=== PATIENT | female | born 1965 | race Caucasian/White ===

== ENCOUNTER 2017-08-24 11:06 | Emergency (ER) | payer BC, OTHER ==
[~2017-08-24] VITALS: Ht 160 cm; Wt 81.0 kg
[~2017-08-24 11:06] MED LIST: CEPH500C5 PO; PHEN-873 PO
[2017-08-24 11:59] LABS: CLARITY,URINE CLEAR (Clear); COLOR,URINE YELLOW (Yellow); GLUCOSE, URINE NEGATIVE (Neg); KETONES,URINE NEGATIVE (Neg); LEUKOCYTE ESTERASE ,URINE NEGATIVE (Neg); NITRITES, URINE NEGATIVE (Neg); OCCULT BLOOD,URINE NEGATIVE (Neg); PROTEIN,URINE NEGATIVE (Neg); UROBILINOGEN,URINE 0.2 E.U/dL (0.2-1.0)
[2017-08-24 12:03] VITALS: BP 150/82
[2017-08-24 12:05] LABS: UA COLLECTION TYPE CLN CATCH MIDSTREAM
[2017-08-24] MEDS ORDERED: BENZ-16 PO (12:39)
[2017-08-24] MEDS ORDERED: TAM75C PO (12:39)
[2017-08-24] MEDS ORDERED: ALBU8HFA PO (12:39)
== END 2017-08-24 12:45 | disposition home or self-care (01) ==
LOC: ER 11:07
DX: J11.1 Influenza due to unidentified influenza virus with other respiratory manifestations (principal)
CPT/HCPCS: 36415; 71046; 81003; 82948; 87502; 87503; 93005; 99285

== ENCOUNTER 2017-10-30 13:47 | Outpatient (CLI) | payer OTHER | END 2017-10-30 23:59 | disposition home or self-care (01) | LOC: VAS 13:47 | PROVIDERS: ATTEND Internal Medicine Interventional Cardiology | DX: I65.23 Occlusion and stenosis of bilateral carotid arteries (principal); R55 Syncope and collapse; Z87.891 Personal history of nicotine dependence | CPT/HCPCS: 93880 ==

== ENCOUNTER 2018-03-30 07:54 | Emergency (ER) | payer OTHER ==
[~2018-03-30] VITALS: Ht 162.6 cm; Wt 84.1 kg
[~2018-03-30 07:54] MED LIST changes: +PHEN-786 PO; -PHEN-873 PO
[2018-03-30 09:07] VITALS: BP 142/96
== END 2018-03-30 09:08 | disposition home or self-care (01) ==
LOC: ER 07:55
DX: R10.84 Generalized abdominal pain (principal); Z90.49 Acquired absence of other specified parts of digestive tract; Z88.0 Allergy status to penicillin; Z88.5 Allergy status to narcotic agent
CPT/HCPCS: 74176; 99284

== ENCOUNTER 2018-10-25 09:17 | Emergency (ER) | payer OTHER ==
[~2018-10-25] VITALS: Ht 160 cm; Wt 90.0 kg
[~2018-10-25 09:17] MED LIST changes: -CEPH500C5 PO
[2018-10-25 09:21] VITALS: BP 157/95
[2018-10-25] MEDS ORDERED: albuterol 2.5 MG/3 ML nebule NEB ONE (09:30)
[2018-10-25] MEDS ORDERED: ALBU8HFA PO (09:57)
[2018-10-25] MEDS ORDERED: AZIT250T PO (09:57)
[2018-10-25] MEDS ORDERED: BENZ-16 PO (09:57)
== END 2018-10-25 10:05 | disposition home or self-care (01) ==
LOC: ER 09:18
DX: J20.9 Acute bronchitis, unspecified (principal); Z88.0 Allergy status to penicillin; Z88.5 Allergy status to narcotic agent; Z87.440 Personal history of urinary (tract) infections
CPT/HCPCS: 71045; 94640; 94760; 99283

== ENCOUNTER 2019-01-07 09:52 | Emergency (ER) | payer OTHER ==
[~2019-01-07] VITALS: Ht 162.6 cm; Wt 79.0 kg
[~2019-01-07 09:52] MED LIST changes: +AZIT250T PO
[2019-01-07] MEDS ORDERED: diphenhydrAMINE 25mg capsule PO ONE (10:30)
[2019-01-07] MEDS ORDERED: ondansetron 4mg rapidly disintigrating tab PO ONE (10:30)
[2019-01-07] MEDS ORDERED: meclizine 12.5mg tablet PO ONE (10:30)
[2019-01-07 11:00] LABS: BASOPHILS % (AUTO) 0.4 % (0-1); EOSINOPHILS # (AUTO) 0.1 X10'3 (0-0.9); EOSINOPHILS % (AUTO) 1.8 % (0-6); HEMATOCRIT 39.7 % (35.0-45.0); HEMOGLOBIN 13.4 g/dl (12.0-16.0); LYMPHOCYTES # (AUTO) 1.9 X10'3 (1.1-4.8); MEAN CORPUSCULAR HEMOGLOBIN 31.7 PG (27.0-31.0); MEAN CORPUSCULAR HGB CONC 33.8 g/dL (33.0-36.5); MEAN CORPUSCULAR VOLUME 93.7 FL (78-98); MEAN PLATELET VOLUME 7.8 FL (7.4-10.4); MONOCYTES # (AUTO) 0.6 X10'3 (0-0.9); MONOCYTES % (AUTO) 8.6 % (2-12); NEUTROPHILS # (AUTO) 4.5 X10'3 (1.8-7.7); NEUTROPHILS % (AUTO) 62.2 % (42-75); PLATELET COUNT 279 X10'3 (140-440); RED BLOOD COUNT 4.24 X10'6 (4.20-5.60); RED CELL DISTRIBUTION WIDTH 13.6 % (11.5-14.5); WHITE BLOOD COUNT 7.2 X10'3 (4.5-11.0)
[2019-01-07 11:16] LABS: ALANINE AMINOTRANSFERASE 33 U/L (12-78); ALBUMIN 3.4 G/DL (3.4-5.0); ALBUMIN/GLOBULIN RATIO 0.9 (1.1-1.5); ALKALINE PHOSPHATASE 71 IU/L (46-116); ANION GAP 4 (8-16); ASPARTATE AMINO TRANSFERASE 21 U/L (10-37); BILIRUBIN,TOTAL 0.3 MG/DL (0.1-1.0); BLOOD UREA NITROGEN 13 MG/DL (7-18); BUN/CREATININE RATIO 18.6 (6.6-38.0); CALCIUM 8.9 MG/DL (8.5-10.1); CHLORIDE 108 MMOL/L (99-107); GLUCOSE 90 MG/DL (70-104); POTASSIUM 4.2 MMOL/L (3.5-5.1); SODIUM 141 MMOL/L (135-145); TOTAL CARBON DIOXIDE 29.3 MMOL/L (24-32); TOTAL PROTEIN 7.1 G/DL (6.4-8.2); eGFR 88 ML/MIN
[2019-01-07] MEDS ORDERED: proCHLORperazine 10mg tablet PO ONE (12:00)
[2019-01-07] MEDS ORDERED: diazepam 5mg tablet PO ONE (12:00)
[2019-01-07 12:38] VITALS: BP 150/91
[2019-01-07] MEDS ORDERED: VAL5T PO (13:07)
[2019-01-07] MEDS ORDERED: DIPH25CA83 PO (13:07)
[2019-01-07] MEDS ORDERED: PROC-8 PO (13:07)
[2019-01-07] MEDS ORDERED: SCOP1PAT11 TD (13:07)
== END 2019-01-07 13:43 | disposition home or self-care (01) ==
LOC: ER 09:53
DX: H81.13 Benign paroxysmal vertigo, bilateral (principal); Z98.890 Other specified postprocedural states; Z88.0 Allergy status to penicillin; Z88.8 Allergy status to other drugs, medicaments and biological substances; Z88.5 Allergy status to narcotic agent; Z79.899 Other long term (current) drug therapy
CPT/HCPCS: 36415; 70450; 80053; 85025; 99284; J2405; J8597; Q0163; Q0164

== ENCOUNTER 2019-11-26 08:16 | Emergency (ER) | payer BC, OTHER ==
[~2019-11-26] VITALS: Ht 160 cm; Wt 80.0 kg
[~2019-11-26 08:16] MED LIST changes: +DIPH25CA83 PO; +PROC-8 PO; +SCOP1PAT11 TD
[2019-11-26 08:33] VITALS: BP 138/85
== END 2019-11-26 09:44 | disposition home or self-care (01) ==
LOC: ER 08:16
DX: J06.9 Acute upper respiratory infection, unspecified (principal); B97.89 Other viral agents as the cause of diseases classified elsewhere; Z20.828 Contact with and (suspected) exposure to other viral communicable diseases; Z88.0 Allergy status to penicillin; Z88.5 Allergy status to narcotic agent; Z79.899 Other long term (current) drug therapy
CPT/HCPCS: 36415; 87081; 87880; 99283

== ENCOUNTER 2019-12-23 08:43 | Emergency (ER) | payer BC ==
[~2019-12-23] VITALS: Ht 160 cm; Wt 79.5 kg
[2019-12-23 08:49] VITALS: BP 152/100
[2019-12-23] MEDS ORDERED: dexamethasone sod phosphate 10mg/ml inj IM STA (08:54)
[2019-12-23] MEDS ORDERED: CefTRIAXone 250MG IM Kit w/LIDOcaine IM ONE (08:55)
[2019-12-23] MEDS ORDERED: XYL25J TOP (09:09)
[2019-12-23] MEDS ORDERED: CEPH250T PO (09:09)
[2019-12-23] MEDS ORDERED: HYDR-4383 PO (09:09)
== END 2019-12-23 09:31 | disposition home or self-care (01) ==
LOC: ER 08:43
DX: J02.9 Acute pharyngitis, unspecified (principal); Z20.828 Contact with and (suspected) exposure to other viral communicable diseases; Z98.890 Other specified postprocedural states; Z88.0 Allergy status to penicillin; Z88.5 Allergy status to narcotic agent; Z88.8 Allergy status to other drugs, medicaments and biological substances; Z79.899 Other long term (current) drug therapy
CPT/HCPCS: 87081; 87880; 96372; 99284; J0696; J1100; 36415

== ENCOUNTER 2020-02-18 20:45 | Emergency (ER) | payer BC ==
[~2020-02-18] VITALS: Ht 160 cm; Wt 73.0 kg
[~2020-02-18 20:45] MED LIST changes: +HYDR-4383 PO; +XYL25J TOP
[2020-02-18 20:46] VITALS: BP 120/89
[2020-02-18] MEDS ORDERED: triamcinolone acetonide 40mg/ml inj IM ONE (21:05)
[2020-02-18] MEDS ORDERED: PRED10TA PO (21:15)
== END 2020-02-18 21:24 | disposition home or self-care (01) ==
LOC: ER 20:46
DX: L23.7 Allergic contact dermatitis due to plants, except food (principal); Z87.440 Personal history of urinary (tract) infections; Z98.890 Other specified postprocedural states; Z88.0 Allergy status to penicillin; Z88.5 Allergy status to narcotic agent; Z88.8 Allergy status to other drugs, medicaments and biological substances; Z79.2 Long term (current) use of antibiotics; Z79.899 Other long term (current) drug therapy
CPT/HCPCS: 96372; 99283; J3301

== ENCOUNTER 2020-12-01 13:14 | Emergency (ER) | payer BC, OTHER ==
[~2020-12-01] VITALS: Ht 160 cm; Wt 77.3 kg
[~2020-12-01 13:14] MED LIST changes: +PRED10TA PO
[2020-12-01] MEDS ORDERED: ondansetron/PF 4mg/2ml inj IV ONE (14:10)
[2020-12-01] MEDS ORDERED: ketorolac trometh. 30mg/ml inj. IV ONE (14:10)
[2020-12-01] MEDS ORDERED: oxyCODONE/APAP 10/325mg tablet PO ONE (14:10)
[2020-12-01] MEDS ORDERED: normal saline 1000ML IV soln IVB ONE (14:10)
[2020-12-01] MEDS ORDERED: diazepam inj 5 MG/ML inj. IV ONE ×2 (14:10→16:45)
--- NOTE | 2020-12-01 15:51 | NUR ---
PT TAKEN TO MRI.
[2020-12-01] MEDS ORDERED: HYDROmorphone 1 mg/ml syringe IV ONE (16:45)
[2020-12-01] MEDS ORDERED: DIAZ5TAB22 PO (17:26)
[2020-12-01] MEDS ORDERED: OXYC-145 PO (17:26)
[2020-12-01] MEDS ORDERED: KETO10TA2 PO (17:26)
[2020-12-01 18:24] VITALS: BP 140/77
[2020-12-02] MEDS ORDERED: DICL75TA5 PO (16:10)
[2020-12-02] MEDS ORDERED: AMPH20CA3 PO (16:10)
[2020-12-02] MEDS ORDERED: PROG100C11 PO (16:10)
[2020-12-02] MEDS ORDERED: ESTR1PAT93 TP (16:10)
== END 2020-12-01 18:20 | disposition home or self-care (01) ==
LOC: ER 13:15 → EEVIPCON 13:15 → ER 18:20
DX: S32.010A Wedge compression fracture of first lumbar vertebra, initial encounter for closed fracture (principal); Z88.0 Allergy status to penicillin; Z88.6 Allergy status to analgesic agent; Z88.8 Allergy status to other drugs, medicaments and biological substances; Z79.2 Long term (current) use of antibiotics; Z79.899 Other long term (current) drug therapy; Z98.890 Other specified postprocedural states; W19.XXXA Unspecified fall, initial encounter; Y93.89 Activity, other specified; Y92.89 Other specified places as the place of occurrence of the external cause; Y99.8 Other external cause status
CPT/HCPCS: 72148; 96361; 96374; 96375; 96376; 99284; J1170; J1885; J2405; J3360; J7030

== ENCOUNTER 2020-12-02 15:38 | Inpatient (IN) | payer BC ==
[~2020-12-02] VITALS: Ht 160 cm; Wt 77.0 kg
[~2020-12-02 15:38] MED LIST changes: +DIAZ5TAB22 PO; +KETO10TA2 PO; +OXYC-145 PO
[2020-12-02] MEDS ORDERED: normal saline 1000ML IV soln IVB ONE (15:45)
[2020-12-02] MEDS ORDERED: diazepam inj 5 MG/ML inj. IV ONE (15:45)
[2020-12-02] MEDS ORDERED: HYDROmorphone 1 mg/ml syringe IV ONE (15:45)
[2020-12-02] MEDS ORDERED: ondansetron/PF 4mg/2ml inj IV ONE (15:45)
[2020-12-02] MEDS ORDERED: DICL75TA5 PO (16:10)
[2020-12-02] MEDS ORDERED: AMPH20CA3 PO (16:10)
[2020-12-02] MEDS ORDERED: ESTR1PAT93 TP (16:10)
[2020-12-02] MEDS ORDERED: PROG100C11 PO (16:10)
[2020-12-02 16:55] LABS: BASOPHILS % (AUTO) 0.4 % (0-1); EOSINOPHILS # (AUTO) 0.1 X10'3 (0-0.9); EOSINOPHILS % (AUTO) 0.9 % (0-6); HEMATOCRIT 37.5 % (35.0-45.0); HEMOGLOBIN 12.9 g/dl (12.0-16.0); LYMPHOCYTES # (AUTO) 2.8 X10'3 (1.1-4.8); LYMPHOCYTES % (AUTO) 31.4 % (21-51); MEAN CORPUSCULAR HEMOGLOBIN 31.1 PG (27.0-31.0); MEAN CORPUSCULAR HGB CONC 34.3 g/dL (33.0-36.5); MEAN CORPUSCULAR VOLUME 90.9 FL (78-98); MEAN PLATELET VOLUME 7.5 FL (7.4-10.4); MONOCYTES # (AUTO) 0.8 X10'3 (0-0.9); MONOCYTES % (AUTO) 9.4 % (2-12); NEUTROPHILS # (AUTO) 5.1 X10'3 (1.8-7.7); NEUTROPHILS % (AUTO) 57.9 % (42-75); PLATELET COUNT 265 X10'3 (140-440); RED BLOOD COUNT 4.13 X10'6 (4.20-5.60); RED CELL DISTRIBUTION WIDTH 14.3 % (11.5-14.5); WHITE BLOOD COUNT 8.8 X10'3 (4.5-11.0)
[2020-12-02 17:18] LABS: ALANINE AMINOTRANSFERASE 21 U/L (12-78); ALBUMIN 3.3 G/DL (3.4-5.0); ALBUMIN/GLOBULIN RATIO 0.9 (1.1-1.5); ALKALINE PHOSPHATASE 85 IU/L (46-116); ANION GAP 9 (8-16); ASPARTATE AMINO TRANSFERASE 19 U/L (10-37); BILIRUBIN,TOTAL 0.5 MG/DL (0.1-1.0); BLOOD UREA NITROGEN 15 MG/DL (7-18); BUN/CREATININE RATIO 21.1 (6.6-38.0); CALCIUM 8.4 MG/DL (8.5-10.1); CHLORIDE 104 MMOL/L (99-107); CREATININE 0.71 MG/DL (0.40-0.90); GLUCOSE 98 MG/DL (70-104); POTASSIUM 3.5 MMOL/L (3.5-5.1); SODIUM 138 MMOL/L (135-145); TOTAL CARBON DIOXIDE 25.4 MMOL/L (24-32); TOTAL PROTEIN 6.8 G/DL (6.4-8.2); eGFR 86 ML/MIN
[2020-12-02] MEDS ORDERED: magnesium 2GM in 50ml NS 50 ML IV PRN (17:25)
[2020-12-02] MEDS ORDERED: magnesium hydroxide 30ml (MOM) UD suspension PO PRN (17:25)
[2020-12-02] MEDS ORDERED: mag hydrox/Alum hydrox/simeth 30ml oral suspension PO PRN (17:25)
[2020-12-02] MEDS ORDERED: potassium Cl 20 mEq SR tablet PO PRN ×2 (17:25)
[2020-12-02] MEDS ORDERED: acetaminophen 650mg rectal suppository RC PRN (17:25)
[2020-12-02] MEDS: normal saline 1000ml 1,000 ML IV SCH ×2 (17:25→23:03)
[2020-12-02] MEDS ORDERED: magnesium 4gm in 100ml NS 100 ML IV PRN (17:25)
[2020-12-02] MEDS ORDERED: potassium Cl 40MEQ/1/2NS 520ml 520 ML IV PRN ×2 (17:25)
[2020-12-02] MEDS ORDERED: diphenhydrAMINE 25mg capsule PO PRN (17:25)
[2020-12-02] MEDS ORDERED: acetaminophen 325mg tablet PO PRN ×2 (17:25)
[2020-12-02] MEDS ORDERED: bisacodyl 10mg suppository rectal RC PRN (17:25)
[2020-12-02] MEDS ORDERED: magnesium Cl slow-release 64mg tablet PO PRN (17:25)
[2020-12-02] MEDS ORDERED: HYDROmorphone inj. 0.5 MG/0.5 ML DISP.SYRIN IV PRN (17:25)
[2020-12-02 17:51] LABS: CLARITY,URINE SLIGHTLY CLOUDY (Clear); COLOR,URINE STRAW (Yellow); GLUCOSE, URINE NEGATIVE (Neg); KETONES,URINE NEGATIVE (Neg); LEUKOCYTE ESTERASE ,URINE MODERATE (Neg); NITRITES, URINE NEGATIVE (Neg); OCCULT BLOOD,URINE NEGATIVE (Neg); PH,URINE 5.5 (4.8-8.0); PROTEIN,URINE NEGATIVE (Neg); UROBILINOGEN,URINE 0.2 E.U/dL (0.2-1.0)
[2020-12-02] MEDS ORDERED: oxyCODONE/APAP 10/325mg tablet PO PRN (17:55)
[2020-12-02] MEDS ORDERED: cyclobenzaprine 10mg tablet PO PRN (18:00)
[2020-12-02 18:01] LABS: UA COLLECTION TYPE CLN CATCH MIDSTREAM
[2020-12-02 18:06] LABS: SQUAMOUS EPITHELIAL CELL,UR FEW /LPF (FEW)
[2020-12-02 18:08] LABS: RBC,URINE 0-2 /HPF (0-2)
[2020-12-02 18:12] LABS: BACTERIA,URINE 2+ /HPF (Neg)
--- NOTE | 2020-12-02 19:57 | NUR ---
assisting RN with pt care, pt requesting valium as it works best for her pain, paged Dr Guzman gave verbal order for valium 5mg IV every 6 hours prn muscle spasm
[2020-12-02] MEDS: K and/or MAG REPLACEMENT MC SCH (20:00)
[2020-12-02] MEDS: diazepam inj 5 MG/ML inj. IV PRN (20:35)
--- NOTE | 2020-12-02 22:40 | NUR ---
c\o pain. advised primary RN of pts pain. Will need to get dilaudid from the floor. pt also requesting zofran for nausea. contacted MD Guzman for zofran order.
[2020-12-02] MEDS: ondansetron/PF 4mg/2ml inj IV PRN (23:04)
[2020-12-03] VITALS: BP 183/97
[2020-12-03] MEDS ORDERED: normal saline 1000ml 1,000 ML IV SCH (00:25)
[2020-12-03] MEDS ORDERED: naloxone 0.4 mg/ml inj IV PRN (00:25)
[2020-12-03] MEDS ORDERED: CADD PCA waste documentation MC PRN (00:25)
[2020-12-03] MEDS: HYDROmorph./NS 0.2 mg/ml CADD 100 ML IV SCH ×5 (00:59→09:00)
[2020-12-03 05:49] LABS: BASOPHILS % (AUTO) 0.5 % (0-1); EOSINOPHILS # (AUTO) 0.1 X10'3 (0-0.9); EOSINOPHILS % (AUTO) 1.5 % (0-6); HEMATOCRIT 35.2 % (35.0-45.0); HEMOGLOBIN 12.1 g/dl (12.0-16.0); LYMPHOCYTES # (AUTO) 2.7 X10'3 (1.1-4.8); LYMPHOCYTES % (AUTO) 37.8 % (21-51); MEAN CORPUSCULAR HEMOGLOBIN 30.9 PG (27.0-31.0); MEAN CORPUSCULAR HGB CONC 34.4 g/dL (33.0-36.5); MEAN CORPUSCULAR VOLUME 89.7 FL (78-98); MEAN PLATELET VOLUME 7.2 FL (7.4-10.4); MONOCYTES # (AUTO) 0.7 X10'3 (0-0.9); MONOCYTES % (AUTO) 9.3 % (2-12); NEUTROPHILS # (AUTO) 3.6 X10'3 (1.8-7.7); NEUTROPHILS % (AUTO) 50.9 % (42-75); PLATELET COUNT 255 X10'3 (140-440); RED BLOOD COUNT 3.92 X10'6 (4.20-5.60); RED CELL DISTRIBUTION WIDTH 14.2 % (11.5-14.5); WHITE BLOOD COUNT 7.1 X10'3 (4.5-11.0)
[2020-12-03 06:04] LABS: ALANINE AMINOTRANSFERASE 36 U/L (12-78); ALBUMIN 2.9 G/DL (3.4-5.0); ALBUMIN/GLOBULIN RATIO 0.8 (1.1-1.5); ALKALINE PHOSPHATASE 93 IU/L (46-116); ANION GAP 8 (8-16); ASPARTATE AMINO TRANSFERASE 66 U/L (10-37); BILIRUBIN,TOTAL 0.3 MG/DL (0.1-1.0); BLOOD UREA NITROGEN 12 MG/DL (7-18); BUN/CREATININE RATIO 17.9 (6.6-38.0); CALCIUM 8.5 MG/DL (8.5-10.1); CHLORIDE 107 MMOL/L (99-107); CREATININE 0.67 MG/DL (0.40-0.90); GLUCOSE 80 MG/DL (70-104); PHOSPHORUS 4.9 MG/DL (2.3-4.5); POTASSIUM 3.7 MMOL/L (3.5-5.1); SODIUM 142 MMOL/L (135-145); TOTAL PROTEIN 6.5 G/DL (6.4-8.2); eGFR > 90 ML/MIN
[2020-12-03 06:18] VITALS: BP 109/69
--- NOTE | 2020-12-03 06:26 | NUR ---
Patient in room [facility] 4023. I have received report from Sherri LAWRENCE and had the opportunity to ask questions and assume patient care.
[2020-12-03] MEDS: diazepam inj 5 MG/ML inj. IV PRN (07:03)
[2020-12-03] MEDS ORDERED: dextroamphetamine/amphetamine ER 20 MG CAP.SR.24H PO SCH (08:00)
[2020-12-03] MEDS: K and/or MAG REPLACEMENT MC SCH (08:00)
[2020-12-03] MEDS ORDERED: progesterone, micronized 100mg capsule PO SCH (08:00)
[2020-12-03] MEDS ORDERED: dextroamphetamine/amphetamine 5mg tablet PO SCH (08:00)
[2020-12-03] MEDS: ondansetron/PF 4mg/2ml inj IV PRN (09:14)
--- NOTE | 2020-12-03 09:47 | NUR ---
Page Sent PAGER ID: [phone] MESSAGE: [id number] Dr Christy Fernández evaluated pt and recommends rest and analgesics, no kyphoplasty. [facility] [id number]
[2020-12-03] MEDS ORDERED: oxyCODONE/APAP 5-325mg tablet PO PRN (09:50)
[2020-12-03 10:05] VITALS: BP 131/65
[2020-12-03] MEDS: oxyCODONE/APAP 10/325mg tablet PO PRN ×2 (10:20→13:59)
--- NOTE | 2020-12-03 11:18 | NUR ---
Page Sent PAGER ID: [phone] MESSAGE: [id number] Pradeep, pt was having nausea I gave her Zofran. Pt is still experiencing nausea can she have reglan ? Dirk [id number]
[2020-12-03] MEDS ORDERED: metoclopramide 5 mg/ml inj IV PRN (12:25)
[2020-12-03] MEDS ORDERED: CYCL-1 PO (12:26)
[2020-12-03] MEDS ORDERED: OXYC-150 PO (12:26)
[2020-12-03] MEDS ORDERED: ONDA4TAB6 PO (12:26)
--- NOTE | 2020-12-03 12:43 | NUR ---
Patient was requesting iv pain medications after percocet admin. Dr. Smith called and discussed with patient going home as she refused physical therapy. Patient agreeable to go home, when asked if she was okay with not receiving any more iv pain medications in anticipation for discharge home she fell asleep while talking with me.
[2020-12-03] MEDS ORDERED: CIPR250T4 PO (12:52)
[2020-12-03] MEDS ORDERED: ciprofloxacin 250mg tablet PO ONE (12:55)
[2020-12-03] MEDS: normal saline 1000ml 1,000 ML IV SCH (13:25)
--- NOTE | 2020-12-03 14:07 | NUR ---
Pt was given all discharge information and had no question. Offered wheelchair but pt wanted to walk. Pt took all belongings with them and left in a private vehicle with family member.
== END 2020-12-03 14:10 | disposition home or self-care (01) | DRG 552 ==
LOC: ER 15:38 → EEVIPCON 15:38 → ED HOLD 17:22 → ORTHO 4S 23:57
PROVIDERS: ADMIT Family Medicine; ATTEND Family Medicine
DX: M54.5 Low back pain (principal); S32.010A Wedge compression fracture of first lumbar vertebra, initial encounter for closed fracture; N39.0 Urinary tract infection, site not specified; Z53.20 Procedure and treatment not carried out because of patient's decision for unspecified reasons; Z87.891 Personal history of nicotine dependence; Z82.49 Family history of ischemic heart disease and other diseases of the circulatory system; Z80.8 Family history of malignant neoplasm of other organs or systems; Z80.51 Family history of malignant neoplasm of kidney; Z88.5 Allergy status to narcotic agent
CPT/HCPCS: 36415; 71045; 80053; 81001; 83735; 84100; 85025; 85610; 86885; 86900; 86901; 87081; 87088; 93005; 96374; 96375; 99285; G0378; J1170; J2405; J2765; J3360; J7030

== ENCOUNTER 2021-02-17 22:43 | Emergency (ER) | payer BC ==
[~2021-02-17] VITALS: Ht 160 cm; Wt 90.0 kg
[~2021-02-17 22:43] MED LIST changes: +AMPH20CA3 PO; -AZIT250T PO; +CIPR250T4 PO; +CYCL-1 PO; -DIAZ5TAB22 PO; +DICL75TA5 PO; -DIPH25CA83 PO; +ESTR1PAT93 TP; -HYDR-4383 PO; -KETO10TA2 PO; +LIDOcaine 1% 30ml preserv. free vial ONE; +ONDA4TAB6 PO; -OXYC-145 PO; +OXYC-150 PO; -PHEN-786 PO; -PRED10TA PO; -PROC-8 PO; +PROG100C11 PO; -SCOP1PAT11 TD; -XYL25J TOP
[2021-02-17 22:46] VITALS: BP 187/102
[2021-02-17] MEDS ORDERED: ketorolac trometh inj. 60 MG/2 ML VIAL IM ONE (23:35)
[2021-02-17] MEDS ORDERED: acetaminophen 325mg tablet PO ONE (23:35)
[2021-02-17] MEDS ORDERED: HYDROcodone/acetaminophen 5mg/325mg tablet PO ONE (23:35)
[2021-02-17] MEDS ORDERED: ondansetron 4mg rapidly disintigrating tab PO ONE (23:35)
== END 2021-02-18 00:59 | disposition home or self-care (01) ==
LOC: ER 22:44 → EEVIPCON 22:44 → ER 02-18 00:59
DX: S32.010A Wedge compression fracture of first lumbar vertebra, initial encounter for closed fracture (principal); M25.511 Pain in right shoulder; G89.29 Other chronic pain; Z87.440 Personal history of urinary (tract) infections; Z98.890 Other specified postprocedural states; Z88.5 Allergy status to narcotic agent; Z88.0 Allergy status to penicillin; Z88.8 Allergy status to other drugs, medicaments and biological substances; Z79.2 Long term (current) use of antibiotics; Z79.899 Other long term (current) drug therapy; X58.XXXA Exposure to other specified factors, initial encounter; Y93.89 Activity, other specified; Y92.89 Other specified places as the place of occurrence of the external cause; Y99.8 Other external cause status
CPT/HCPCS: 72100; 73030; 96372; 99284; J1885; J2001

== ENCOUNTER 2021-03-01 13:30 | Outpatient (CLI) | payer BC ==
[~2021-03-01 13:30] MED LIST changes: -LIDOcaine 1% 30ml preserv. free vial ONE
== END 2021-03-01 23:59 | disposition home or self-care (01) ==
LOC: CARD DIAG 13:30
PROVIDERS: ATTEND Physician Assistant
DX: R06.02 Shortness of breath (principal)
CPT/HCPCS: 93306

== ENCOUNTER 2021-03-01 13:43 | Outpatient (CLI) | payer BC | END 2021-03-01 23:59 | disposition home or self-care (01) | LOC: RAD 13:43 | PROVIDERS: ATTEND Orthopaedic Surgery | DX: M75.101 Unspecified rotator cuff tear or rupture of right shoulder, not specified as traumatic (principal); M19.011 Primary osteoarthritis, right shoulder | CPT/HCPCS: 73221 ==

== ENCOUNTER 2022-07-06 14:37 | Emergency (ER) | payer BC ==
[~2022-07-06] VITALS: Ht 162.6 cm; Wt 90.9 kg
[2022-07-06 14:39] VITALS: BP 196/107
[2022-07-06] MEDS ORDERED: ondansetron/PF 4mg/2ml inj IV ONE (15:00)
[2022-07-06] MEDS ORDERED: fentaNYL/PF 50MCG/1 ML 2ML syringe IV ONE ×3 (15:00→19:25)
[2022-07-06 15:14] LABS: BASOPHILS % (AUTO) 0.3 % (0-1); EOSINOPHILS # (AUTO) 0.1 X10'3 (0-0.9); EOSINOPHILS % (AUTO) 0.6 % (0-6); HEMATOCRIT 42.8 % (35.0-45.0); HEMOGLOBIN 14.3 g/dl (12.0-16.0); LYMPHOCYTES # (AUTO) 2.6 X10'3 (1.1-4.8); LYMPHOCYTES % (AUTO) 20.1 % (21-51); MEAN CORPUSCULAR HEMOGLOBIN 30.5 PG (27.0-31.0); MEAN CORPUSCULAR HGB CONC 33.5 g/dL (33.0-36.5); MEAN CORPUSCULAR VOLUME 91.2 FL (78-98); MEAN PLATELET VOLUME 7.5 FL (7.4-10.4); MONOCYTES # (AUTO) 1.2 X10'3 (0-0.9); MONOCYTES % (AUTO) 9.4 % (2-12); NEUTROPHILS # (AUTO) 8.8 X10'3 (1.8-7.7); NEUTROPHILS % (AUTO) 69.6 % (42-75); PLATELET COUNT 273 X10'3 (140-440); RED BLOOD COUNT 4.69 X10'6 (4.20-5.60); RED CELL DISTRIBUTION WIDTH 13.6 % (11.5-14.5); WHITE BLOOD COUNT 12.7 X10'3 (4.5-11.0)
[2022-07-06 15:27] LABS: ALANINE AMINOTRANSFERASE 127 U/L (12-78); ALBUMIN 3.7 G/DL (3.4-5.0); ALBUMIN/GLOBULIN RATIO 0.8 (1.1-1.5); ALKALINE PHOSPHATASE 160 IU/L (46-116); ANION GAP 10 (8-16); ASPARTATE AMINO TRANSFERASE 150 U/L (10-37); BILIRUBIN,TOTAL 0.6 MG/DL (0.1-1.0); BLOOD UREA NITROGEN 8 MG/DL (7-18); BUN/CREATININE RATIO 11.9 (6.6-38.0); CALCIUM 9.1 MG/DL (8.5-10.1); CHLORIDE 99 MMOL/L (99-107); CREATININE 0.67 MG/DL (0.40-0.90); GLUCOSE 93 MG/DL (70-104); LIPASE 100 U/L (73-393); POTASSIUM 3.3 MMOL/L (3.5-5.1); SODIUM 134 MMOL/L (135-145); TOTAL CARBON DIOXIDE 25.3 MMOL/L (24-32); TOTAL PROTEIN 8.2 G/DL (6.4-8.2); eGFR > 90 ML/MIN
[2022-07-06 17:36] LABS: CLARITY,URINE SLIGHTLY CLOUDY (Clear); COLOR,URINE YELLOW (Yellow); GLUCOSE, URINE NEGATIVE (Neg); KETONES,URINE NEGATIVE (Neg); LEUKOCYTE ESTERASE ,URINE SMALL (Neg); NITRITES, URINE NEGATIVE (Neg); OCCULT BLOOD,URINE SMALL (Neg); PROTEIN,URINE NEGATIVE (Neg); UROBILINOGEN,URINE 0.2 E.U/dL (0.2-1.0)
[2022-07-06 17:40] LABS: UA COLLECTION TYPE CLN CATCH MIDSTREAM
[2022-07-06 17:45] LABS: BACTERIA,URINE FEW /HPF (Neg); MUCUS STRANDS FEW /LPF (Neg); RBC,URINE 0-2 /HPF (0-2); SQUAMOUS EPITHELIAL CELL,UR FEW /LPF (FEW)
[2022-07-06] MEDS ORDERED: metroNIDAZOLE-Flagyl 500mg/NS 100 ML IV STA (18:41)
[2022-07-06] MEDS ORDERED: ciprofloxacin 250mg tablet PO ONE (18:45)
[2022-07-06] MEDS ORDERED: METR-159 PO ×2 (18:47→20:33)
[2022-07-06] MEDS ORDERED: CIPR-202 PO ×2 (18:47→20:33)
[2022-07-06] MEDS ORDERED: HYDR-3972 PO ×2 (18:47→20:29)
[2022-07-06] MEDS ORDERED: ONDA4TAB12 PO ×2 (18:47→20:33)
[2022-07-06] MEDS ORDERED: HYDROcodone/acetaminophen 10/325mg tab PO ONE (19:25)
== END 2022-07-06 21:35 | disposition home or self-care (01) ==
LOC: ER 14:38
DX: K57.92 Diverticulitis of intestine, part unspecified, without perforation or abscess without bleeding (principal); Z98.890 Other specified postprocedural states; Z90.49 Acquired absence of other specified parts of digestive tract; Z88.5 Allergy status to narcotic agent; Z88.0 Allergy status to penicillin; Z88.8 Allergy status to other drugs, medicaments and biological substances
CPT/HCPCS: 36415; 74176; 76830; 76856; 80053; 81001; 83690; 85025; 87077; 87088; 87186; 93976; 96365; 96375; 96376; 99285; J2405; J3010; J3490; 99284

== ENCOUNTER 2022-07-12 12:07 | Outpatient (CLI) | payer BC ==
[~2022-07-12 12:07] MED LIST changes: +CIPR-202 PO; +HYDR-3972 PO; +METR-159 PO; +ONDA4TAB12 PO
[2022-07-12 12:47] LABS: BASOPHILS % (AUTO) 0.3 % (0-1); EOSINOPHILS # (AUTO) 0.1 X10'3 (0-0.9); EOSINOPHILS % (AUTO) 1.5 % (0-6); HEMATOCRIT 39.3 % (35.0-45.0); HEMOGLOBIN 13.5 g/dl (12.0-16.0); LYMPHOCYTES # (AUTO) 2.3 X10'3 (1.1-4.8); LYMPHOCYTES % (AUTO) 29.3 % (21-51); MEAN CORPUSCULAR HEMOGLOBIN 31.4 PG (27.0-31.0); MEAN CORPUSCULAR HGB CONC 34.3 g/dL (33.0-36.5); MEAN CORPUSCULAR VOLUME 91.5 FL (78-98); MEAN PLATELET VOLUME 6.8 FL (7.4-10.4); MONOCYTES # (AUTO) 0.8 X10'3 (0-0.9); MONOCYTES % (AUTO) 10.1 % (2-12); NEUTROPHILS # (AUTO) 4.6 X10'3 (1.8-7.7); NEUTROPHILS % (AUTO) 58.8 % (42-75); PLATELET COUNT 352 X10'3 (140-440); RED CELL DISTRIBUTION WIDTH 13.9 % (11.5-14.5); WHITE BLOOD COUNT 7.8 X10'3 (4.5-11.0)
[2022-07-12 13:09] LABS: ALANINE AMINOTRANSFERASE 61 U/L (12-78); ALBUMIN 3.4 G/DL (3.4-5.0); ALBUMIN/GLOBULIN RATIO 0.9 (1.1-1.5); ALKALINE PHOSPHATASE 114 IU/L (46-116); ANION GAP 8 (8-16); ASPARTATE AMINO TRANSFERASE 37 U/L (10-37); BILIRUBIN,TOTAL 0.4 MG/DL (0.1-1.0); BLOOD UREA NITROGEN 10 MG/DL (7-18); BUN/CREATININE RATIO 16.1 (6.6-38.0); CHLORIDE 102 MMOL/L (99-107); CHOL/HDL RATIO 2.9 (0.00-4.99); CHOLESTEROL 137 MG/DL (0-200); CREATININE 0.62 MG/DL (0.40-0.90); GLUCOSE 91 MG/DL (70-104); HDL CHOLESTEROL 47 MG/DL (35-60); LDL CHOLESTEROL 70 MG/DL (50-100); POTASSIUM 3.5 MMOL/L (3.5-5.1); SODIUM 139 MMOL/L (135-145); TOTAL CARBON DIOXIDE 28.7 MMOL/L (24-32); TOTAL PROTEIN 7.4 G/DL (6.4-8.2); TRIGLYCERIDES 80 MG/DL (20-135); eGFR > 90 ML/MIN
== END 2022-07-12 23:59 | disposition home or self-care (01) ==
LOC: LAB 12:07
PROVIDERS: ATTEND Family Medicine
DX: R10.9 Unspecified abdominal pain (principal); R79.89 Other specified abnormal findings of blood chemistry
CPT/HCPCS: 36415; 80053; 80061; 84436; 84443; 84479; 85025; 86706; 86709; 86803; 87340

== ENCOUNTER 2022-08-20 21:03 | Emergency (ER) | payer BC ==
[~2022-08-20] VITALS: Ht 162.6 cm; Wt 98.0 kg
[~2022-08-20 21:03] MED LIST changes: -CIPR-202 PO; -HYDR-3972 PO; -METR-159 PO
[2022-08-20 21:06] VITALS: BP 147/90
[2022-08-20] MEDS ORDERED: LIDOcaine 1% 30ml preserv. free vial SQ STA (21:36)
[2022-08-20] MEDS ORDERED: LIDOCAINE 2%/EPI 1:100,000 inj. Multi-dose 20 ML VIAL SQ STA (21:53)
[2022-08-20] MEDS ORDERED: CEPH-585 PO (22:42)
[2022-08-22] MEDS ORDERED: VALA500T PO (21:00)
== END 2022-08-20 22:48 | disposition home or self-care (01) ==
LOC: ER 21:04 → EEVIPCON 21:04 → ER 22:48
DX: N76.4 Abscess of vulva (principal); Z98.890 Other specified postprocedural states; Z79.899 Other long term (current) drug therapy; Z88.5 Allergy status to narcotic agent; Z88.0 Allergy status to penicillin; Z79.1 Long term (current) use of non-steroidal anti-inflammatories (NSAID)
CPT/HCPCS: 56405; 99284; A6266; A6449